=== PATIENT | female | born 1955 | race Caucasian/White ===

== ENCOUNTER → 2017-03-21 | Outpatient (CLI) | payer BC ==
[~2017-03-21] MED LIST: BLACK COHOSH40 M1 PO; BLACK ELDERBERRY PO; C-10001000 MG PO; CLARITIN10 M2 PO; DAILY MULTIPLE1 EAC1 PO; ESTRACE0.5 MG PO; HUMIBID LA (MU600 MG PO; LEVOTHROID(SYN75 MCG PO; VITAMIN B122500 MCG PO; VITAMIN D1000 UNIT PO
[2017-03-21 09:49] LABS: ALBUMIN 3.6 gm/dL (3.5-5.0); ANION GAP 10.2 (10.0-19.0); CALCIUM 8.6 mg/dL (8.5-10.5); CREATININE 0.8 mg/dL (0.5-1.1); POTASSIUM 4.2 mMol/L (3.7-5.1)
== END | disposition disaster alternative care site (69) ==
LOC: GRAD 08:55 → GLAB 09:00 → GRAD 09:00
PROVIDERS: Internal Medicine Hematology & Oncology
DX: C34.11 Malignant neoplasm of upper lobe, right bronchus or lung (principal); I67.82 Cerebral ischemia

== ENCOUNTER → 2017-03-29 | Outpatient (CLI) | payer BC | LOC: GKIC 11:21 | DX: R91.8 Other nonspecific abnormal finding of lung field (principal); D35.02 Benign neoplasm of left adrenal gland | CPT/HCPCS: A9552 ==